=== PATIENT | male | born 1950 | race Caucasian/White ===

== ENCOUNTER 2021-06-12 15:50 | Emergency (ER) | payer MEDICARE, OTHER ==
[~2021-06-12] VITALS: Ht 165.1 cm; Wt 89.4 kg
--- NOTE | 2021-06-12 16:00 | NUR ---
BIB [id number] FROM HOME C/O FEVER AND SOB X 2 DAYS. PT WAS +COVID 2 DAYS AGO. AAOX4, BREATHING EVEN AND UNLABORED, NOT IN RESPIRATORY DISTRESS. TO ER BED 4. ATTACHED TO MONITOR.
--- NOTE | 2021-06-12 16:30 | NUR ---
RAC #20G S/L; PATENT AND INTACT. BLOOD AND COVID ANTIGEN SWAB COLLECTED AND GIVEN TO LAB
--- NOTE | 2021-06-12 16:30 | NUR ---
RAC #20G S/L; PATENT AND INTACT. BLOOD AND COVID ANTIGEN SWAB COLLECTED AND GIVEN TO LAB
--- NOTE | 2021-06-12 17:22 | NUR ---
PT REQUESTS MEDICAL REQUESTS TO BE RELEASES ONLY TO [facility] [phone] Addendum: 06/12/21 at 1724 by [facility] *RECORDS* TO BE REALSED TO [facility] ONLY
--- NOTE | 2021-06-12 17:22 | NUR ---
PT REQUESTS MEDICAL REQUESTS TO BE RELEASES ONLY TO [facility] [phone] Addendum: 06/12/21 at 1724 by [facility] *RECORDS* TO BE REALSED TO [facility] ONLY
[2021-06-12 17:40] LABS: BASOPHILS % (AUTO) 0.4 % (0.0-2.0); EOSINOPHILS % (AUTO) 0.1 % (0.0-6.0); HEMATOCRIT 42 % (39-51); HEMOGLOBIN 14.7 g/dL (13.5-17.5); LYMPHOCYTES # (AUTO) 0.9 K/uL (0.8-4.8); LYMPHOCYTES % (AUTO) 20.8 % (20.0-44.0); MEAN CORPUSCULAR HGB CONC 35 g/dl (31.0-36.0); MEAN CORPUSCULAR VOLUME 89 fL (80-96); MONOCYTES # (AUTO) 0.4 K/uL (0.1-1.30); MONOCYTES % (AUTO) 9.1 % (2.0-12.0); NEUTROPHILS % (AUTO) 69.6 % (43.0-81.0); PLATELET COUNT (AUTO) 156 K/uL (150-450); RED BLOOD CELL COUNT(AUTO) 4.74 MIL/uL (4.5-6.0); WHITE BLOOD COUNT (AUTO) 4.3 K/uL (4.3-11.0)
[2021-06-12 18:04] LABS: ALANINE AMINOTRANSFERASE 69 U/L (12-78); ALBUMIN 3.5 g/dL (3.4-5.0); ALKALINE PHOSPHATASE 51 U/L (46-116); ASPARTATE AMINOTRANSFERASE 61 U/L (15-37); BILIRUBIN,DIRECT 0.1 mg/dL (0.0-0.2); BILIRUBIN,TOTAL 0.4 mg/dL (0.2-1.0); CALCIUM, SERUM 8.2 mg/dL (8.5-10.1); CARBON DIOXIDE 24 mmol/L (21-32); CHLORIDE 100 mmol/L (98-107); CREATININE 0.9 mg/dL (0.6-1.3); GLUCOSE 111 mg/dL (74-106); SODIUM SERUM 135 mmol/L (136-145); TOTAL PROTEIN, SERUM 7.4 g/dL (6.4-8.2); UREA NITROGEN, BLOOD 15 mg/dL (7-18)
--- NOTE | 2021-06-12 18:21 | NUR ---
MUST CONSULT DAUGHTER PRIOR TO ADMINISTERING ANY MEDICATIONS.
--- NOTE | 2021-06-12 18:21 | NUR ---
MUST CONSULT DAUGHTER PRIOR TO ADMINISTERING ANY MEDICATIONS.
--- NOTE | 2021-06-12 19:00 | NUR ---
aaox4, breathing even and unlabored. vs stable, pox 98%
--- NOTE | 2021-06-12 19:00 | NUR ---
aaox4, breathing even and unlabored. vs stable, pox 98%
[2021-06-12] MEDS ORDERED: GUAI-671 PO (19:07)
--- NOTE | 2021-06-12 19:25 | NUR ---
Patient discharged to home in stable condition. Written and verbal after care instructions given. Patient verbalizes understanding of instruction.
--- NOTE | 2021-06-12 19:25 | NUR ---
IV removed. Catheter intact and site benign. Pressure and 4x4 applied to site. No bleeding noted.
--- NOTE | 2021-06-12 19:25 | NUR ---
Patient discharged to home in stable condition. Written and verbal after care instructions given. Patient verbalizes understanding of instruction.
--- NOTE | 2021-06-12 19:25 | NUR ---
IV removed. Catheter intact and site benign. Pressure and 4x4 applied to site. No bleeding noted.
[2021-06-12 19:26] VITALS: BP 138/86
== END 2021-06-12 19:27 | disposition home or self-care (01) ==
LOC: ER 15:54
DX: U07.1 COVID-19 (principal); I10 Essential (primary) hypertension; I25.2 Old myocardial infarction; E11.9 Type 2 diabetes mellitus without complications; Z95.5 Presence of coronary angioplasty implant and graft; I45.10 Unspecified right bundle-branch block
CPT/HCPCS: 36415; 71045-TC; 80048-TC; 80076-TC; 83605-TC; 83880; 84484-TC; 85025-TC; 85730-TC; 87040-TC; C9803